=== PATIENT | female | born 1955 | race Caucasian/White ===

== ENCOUNTER 2016-11-23 07:18 | Outpatient (CLI) | payer BC ==
[2016-11-23 13:26] LABS: ALBUMIN/GLOBULIN RATIO 1.3 (1.0-2.2); BILIRUBIN,TOTAL 0.7 mg/dL (0.2-1.0); CALCIUM 9.7 mg/dL (8.5-10.3); CREATININE 0.8 mg/dL (0.4-1.0); POTASSIUM 4.2 mmol/L (3.5-5.0); TOTAL PROTEIN 7.5 g/dL (6.7-8.2)
[2016-11-23 13:36] LABS: BASOPHILS % (AUTO) 0.6 %; EOSINOPHILS # (AUTO) 0.2 10^3/uL (0.0-0.7); EOSINOPHILS % (AUTO) 3.7 %; HCT - HEMATOCRIT 45.4 % (37.0-47.0); LYMPHOCYTES # (AUTO) 1.5 10^3/uL (1.5-3.5); LYMPHOCYTES % (AUTO) 25.2 %; MEAN CORPUSCULAR HGB CONC 32.9 g/dL (32.0-36.0); MEAN CORPUSCULAR VOLUME 87.9 fL (81.0-99.0); MONOCYTES # (AUTO) 0.4 10^3/uL (0.0-1.0); MONOCYTES % (AUTO) 6.3 %; NEUTROPHILS # (AUTO) 3.7 10^3/uL (1.5-6.6); NEUTROPHILS % (AUTO) 64.2 %; RED BLOOD COUNT 5.17 10^6/uL (4.20-5.40); RED CELL DISTRIBUTION WIDTH 13.3 % (12.0-15.0); UNCORRECTED WHITE BLOOD COUNT 5.8 x10^3/uL; WHITE BLOOD COUNT 5.8 x10^3/uL (4.8-10.8)
== END 2016-11-23 07:19 | disposition home or self-care (01) ==
LOC: LAB.WCP 07:18
PROVIDERS: ATTEND Family Medicine
DX: H82.9 Vertiginous syndromes in diseases classified elsewhere, unspecified ear (principal)
CPT/HCPCS: 36415; 80053; 84443; 85025

== ENCOUNTER 2018-04-28 14:02 | Outpatient (CLI) | payer BC ==
--- NOTE | 2018-04-28 16:18 | Ultrasound Report ---
Reason: POSITIVE CARIOLIPIN ANTIBODIES, FAMILIAL PORPHYRIA Procedure Date: 04/28/2018 Accession Number: [id number] / [id number] Procedure: US - Duplex Ext Veins Left CPT Code: FULL RESULT: EXAM: LEFT LOWER EXTREMITY VENOUS ULTRASOUND EXAM DATE: 04/28/2018 03:37 PM. 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 COMPARISON: None. TECHNIQUE: Real-time sonographic vascular imaging was performed by the dock clerk through the lower extremity utilizing both color-flow and Doppler spectral analysis. Multiple patient admitting representative static images were saved for review. FINDINGS: Common Femoral Vein (CFV): Occlusive thrombus. CFV-GSV Junction: Thrombus. Profunda Femoral Vein (PFV): Nonocclusive thrombus. Femoral Vein (FV) Prox: Occlusive thrombus. Femoral Vein (FV) Mid: Occlusive thrombus. Femoral Vein (FV) Dist: Normal. Popliteal Vein: Normal. Posterior Tibial Veins: Normal. Peroneal Veins: Normal. Contralateral Side CFV: Normal. Other: Iliac veins could not be visualized. Lower IVC is patent. IMPRESSION: Extensive left deep venous thrombosis. The patient relates a history of prior left-sided DVT with lysis and additional interventions. Workup has revealed hypercoagulable condition. If the patient has not undergone anatomic evaluation for May Thurner syndrome, consider invasive imaging including venogram and possibly endovascular ultrasound. NADIA CRITICAL RESULT: The findings were discussed with Chikis Garduno on 04/28/2018 at 3:45 PM.
== END 2018-04-28 14:03 | disposition home or self-care (01) ==
LOC: DI 14:02
PROVIDERS: ATTEND Physician Assistant
DX: I82.412 Acute embolism and thrombosis of left femoral vein (principal); Z86.718 Personal history of other venous thrombosis and embolism; E80.1 Porphyria cutanea tarda; R76.0 Raised antibody titer

== ENCOUNTER 2018-04-28 18:34 | Emergency (ER) | payer BC ==
[2018-04-28 20:59] LABS: BASOPHILS % (AUTO) 0.5 %; EOSINOPHILS # (AUTO) 0.2 10^3/uL (0.0-0.7); EOSINOPHILS % (AUTO) 2.2 %; HGB - HEMOGLOBIN 13.5 g/dL (12.0-16.0); LYMPHOCYTES # (AUTO) 1.6 10^3/uL (1.5-3.5); LYMPHOCYTES % (AUTO) 21.5 %; MEAN CORPUSCULAR HEMOGLOBIN 29.2 pg (27.0-31.0); MEAN CORPUSCULAR HGB CONC 32.8 g/dL (32.0-36.0); MEAN CORPUSCULAR VOLUME 88.8 fL (81.0-99.0); MEAN PLATELET VOLUME 8.8 fL (7.9-10.8); MONOCYTES # (AUTO) 0.5 10^3/uL (0.0-1.0); MONOCYTES % (AUTO) 7.1 %; NEUTROPHILS # (AUTO) 5.2 10^3/uL (1.5-6.6); NEUTROPHILS % (AUTO) 68.7 %; PLT - PLATELET COUNT 221 10^3/uL (130-450); RED BLOOD COUNT 4.62 10^6/uL (4.20-5.40); RED CELL DISTRIBUTION WIDTH 13.5 % (12.0-15.0); WHITE BLOOD COUNT 7.6 x10^3/uL (4.8-10.8)
[2018-04-28 21:03] LABS: CALCIUM 9.1 mg/dL (8.5-10.3); CREATININE 0.7 mg/dL (0.4-1.0)
[2018-04-28 21:05] LABS: INR 1.2 (0.8-1.2); PT - PROTHROMBIN TIME 13.5 secs (9.9-12.6)
--- NOTE | 2018-04-28 22:13 | ED Physician Documentation ---
History of Present Illness - Stated complaint Stated Complaint: SENT BY DOC-BLOOD CLOT - Chief complaint Chief Complaint: General - History obtained from History obtained from: Patient - History of Present Illness Timing: Last night Pain level max: 5 Pain level now: 0 Quality: Achy Radiates to: No Improved by: Nothing Worsened by: Nothing Associated symptoms: None - Additonal information Additional information: 62-year-old female with a history of allergic asthma and DVT in 2005 that was treated with heparin then Coumadin for 2 years here Because her primary doctor told her to come to the emergency roomFor treatment of her left leg DVT.Patient stated yesterday was busy cleaning the house and then at nighttime she felt left thigh discomfort which seems to be similar to her previous DVT. She called her doctor and she was ordered to have an ultrasound of her leg. At 2 PM the doctor who read her ultrasound stated that he is also a vascular surgeon and inform her that she has a left leg DVTAnd had recommended the procedure to be done after she is anticoagulated like sometime in May.Patient stated her primary doctor ordered Coumadin and Lovenox but changed her mind and told her to go to the emergency room for admission.Patient denies any chest pain or shortness of breath. Denies any trauma or travel. Review of Systems Ten Systems: 10 systems reviewed and negative Constitutional: denies: Fever, Myalgias Cardiac: denies: Chest pain / pressure Respiratory: denies: Dyspnea Musculoskeletal: reports: Extremity pain. 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 Cardiovascular: Other HEENT: Tonsil/Adenoidectomy - Present Medications Home Medications: Ambulatory Orders Medication Instructions Recorded Confirmed [place]-3 Fatty Acids [Fish Oil] 300 mg PO DAILY 04/11/13 04/11/13 Benzonatate [Tessalon] 100 mg PO TID PRN #20 capsule 09/01/15 guaiFENesin/DEXTROMETHORPHAN 10 ml PO Q6H PRN #120 ml 09/01/15 [Robitussin Dm] Enoxaparin Sodium [Lovenox] 100 mg SQ BID #6 ml 04/28/18 Warfarin Sodium [Coumadin] 10 mg PO ONCE 1 Days #1 tablet 04/28/18 Warfarin [Coumadin] 5 mg PO DAILY #10 tablet 04/28/18 - Allergies Allergies/Adverse Reactions: Allergies Allergy/AdvReac Type Severity Reaction Status Date / Time Barbiturates Allergy Mild Anxiety Verified 04/28/18 18:44 codeine [Codeine] Allergy Mild Nausea Verified 04/28/18 18:44 Sulfa (Sulfonamide Allergy Mild Rash Verified 04/28/18 18:44 Antibiotics) - Social History Does the pt smoke?: No Smoking Status: Former smoker Does the pt drink ETOH?: Yes Does the pt have substance abuse?: No - Immunizations Immunizations are current?: No Immunizations: TDAP >10years/unknown PD ED PE NORMAL - Vitals Vital signs reviewed: Yes - General General: Alert and oriented X 3, No acute distress, Well developed/nourished - HEENT HEENT: Moist mucous membranes, Pharynx benign - Neck Neck: Supple, no meningeal sign - Cardiac Cardiac: RRR, No murmur - Respiratory Respiratory: No respiratory distress, Clear bilaterally - Abdomen Abdomen: Normal bowel sounds, Soft, Non tender, Non distended - Derm Derm: Normal color, Warm and dry - Extremities Extremities: No deformity, Normal ROM s pain, No edema, No calf tenderness / cord, Other (Mild tenderness to palpation left inner thigh. Pulses +2. Full range of motion and strength 5/5. Sensation intact. No erythema. Capillary refill less than 2 seconds.) - Neuro Neuro: Alert and oriented X 3 - Psych Psych: Normal mood, Normal affect Results - Vitals Vitals: Vital Signs - 24 hr 04/28/18 04/28/18 04/28/18 18:40 23:30 23:55 Temperature 35.8 C L 36.3 C L Heart Rate 105 H 78 72 Respiratory 16 18 16 Rate Blood Pressure 140/94 H 146/83 H 136/83 H O2 Saturation 100 95 100 Oxygen O2 Source Room air - Labs Labs: Laboratory Tests 04/28/18 04/28/18 04/28/18 19:55 19:55 19:55 WBC 7.6 RBC 4.62 Hgb 13.5 Hct 41.0 MCV 88.8 MCH 29.2 MCHC 32.8 RDW 13.5 Plt Count 221 MPV 8.8 Neut # (Auto) 5.2 Lymph # (Auto) 1.6 [place] # (Auto) 0.5 Eos # (Auto) 0.2 Baso # (Auto) 0.0 Absolute Nucleated RBC 0.00 Nucleated RBC % 0.0 PT 13.5 H INR 1.2 APTT 29.7 Sodium 141 Potassium 3.6 Chloride 104 Carbon Dioxide 26 Anion Gap 11.0 BUN 14 Creatinine 0.7 Estimated GFR (MDRD) 85 L Glucose 113 H Calcium 9.1 PD MEDICAL DECISION MAKING - ED course Complexity details: reviewed results (2341Reviewed with patient again Lovenox and Coumadin and following up with primary doctor on Tuesday to check her Coumadin level or INR.), re-evaluated patient (0Patient informed of test results and pending hospitalist telephone triage nurse. Patient denies any chest pain or shortness of breath. Left inner thigh discomfort unchanged.2315Patient informed of conversation with the hospitalist. Patient stated she would like to go home on Lovenox and Coumadin. Instructions given on initiation of Lovenox and Coumadin and the importance of follow-up.), considered differential (DVT, muscle strain, Hypercoagulable state), d/w patient, d/w PMD (5Dr. Yoder here in the emergency room and updated me on her conversation with interventional radiologist who stated there is no urgency on doing any procedure for this patient. So admission will be declined. She was informed that patient would like to go home on Lovenox and Coumadin.Dr. Yoder here in the emergency room and updated me on her conversation with interventional radiologist who stated there is no urgency on doing any procedure for this patient. So admission will be declined. She was informed that patient would like to go home on Lovenox and Coumadin.) Departure - Departure Disposition: Home, Self Care Clinical Impression: Dvt femoral (deep venous thrombosis) Qualifiers: Chronicity: acute Laterality: left Qualified Code(s): I82.412 - Acute embolism and thrombosis of left femoral vein Condition: Stable Instructions: Enoxaparin injection, Coumadin, ED DVT Prescriptions: Enoxaparin Sodium [Lovenox] 100 mg SQ BID #6 ml Warfarin [Coumadin] 5 mg PO DAILY #10 tablet Warfarin Sodium [Coumadin] 10 mg PO ONCE 1 Days #1 tablet Comments: You will be giving yourself a shot of Lovenox 100 mg subq twice a day until your INR is greater than 2. On Tuesday night you will be started on Coumadin 10 mg p.o. Then 5 mg daily. However, on Tuesday you will follow-up with your primary doctor to have your INR check.Your primary doctor then will adjust your Coumadin dose based on your INR levels.Remember to be careful and maintain safety as blood thinners can make you bruise and bleed easily. There are certain foods and antibiotics that will change the metabolism of the Coumadin so make sure that you are aware of these. If you are worse return to the emergency room Discharge Date/Time: 04/28/18 23:59
[2018-04-28] MEDS: ENOXAPARIN 100 MG/ML SYRINGE SUBQ STA (23:33)
[2018-04-28 23:58] VITALS: BP 136/83
== END 2018-04-28 23:59 | disposition home or self-care (01) ==
LOC: ED 18:34
DX: I82.412 Acute embolism and thrombosis of left femoral vein (principal); E80.1 Porphyria cutanea tarda; R76.0 Raised antibody titer; Z86.718 Personal history of other venous thrombosis and embolism; Z79.01 Long term (current) use of anticoagulants; Z87.891 Personal history of nicotine dependence
CPT/HCPCS: 36415; 80048; 85025; 85610; 85730; 96372; 99283

== ENCOUNTER 2018-05-08 15:22 | Outpatient (CLI) | payer BC | END 2018-05-08 15:23 | disposition home or self-care (01) | LOC: DI 15:22 | PROVIDERS: ATTEND Radiology Diagnostic Radiology | DX: Z02.9 Encounter for administrative examinations, unspecified (principal) ==

== ENCOUNTER 2018-05-31 22:13 | Outpatient (CLI) | payer BC | END 2018-05-31 22:14 | disposition critical access hospital (66) | LOC: EMS 22:13 | PROVIDERS: ATTEND Surgery | DX: R55 Syncope and collapse (principal); R11.2 Nausea with vomiting, unspecified; R42 Dizziness and giddiness | CPT/HCPCS: A0425; A0427 ==

== ENCOUNTER 2018-05-31 22:28 | Emergency (ER) | payer BC ==
[2018-05-31 23:56] LABS: BASOPHILS # (AUTO) 0.1 10^3/uL (0.0-0.1); BASOPHILS % (AUTO) 0.5 %; EOSINOPHILS # (AUTO) 0.2 10^3/uL (0.0-0.7); EOSINOPHILS % (AUTO) 1.6 %; LYMPHOCYTES # (AUTO) 1.1 10^3/uL (1.5-3.5); LYMPHOCYTES % (AUTO) 10.3 %; MEAN CORPUSCULAR HEMOGLOBIN 28.8 pg (27.0-31.0); MEAN CORPUSCULAR HGB CONC 32.4 g/dL (32.0-36.0); MEAN CORPUSCULAR VOLUME 88.8 fL (81.0-99.0); MEAN PLATELET VOLUME 8.4 fL (7.9-10.8); MONOCYTES # (AUTO) 0.5 10^3/uL (0.0-1.0); MONOCYTES % (AUTO) 4.7 %; NEUTROPHILS # (AUTO) 8.5 10^3/uL (1.5-6.6); NEUTROPHILS % (AUTO) 82.9 %; PLT - PLATELET COUNT 235 10^3/uL (130-450); RED CELL DISTRIBUTION WIDTH 13.9 % (12.0-15.0); WHITE BLOOD COUNT 10.3 x10^3/uL (4.8-10.8)
[2018-06-01 00:08] LABS: ALBUMIN 3.9 g/dL (3.2-5.5); ALBUMIN/GLOBULIN RATIO 1.4 (1.0-2.2); BILIRUBIN,TOTAL 0.9 mg/dL (0.2-1.0); TOTAL PROTEIN 6.7 g/dL (6.7-8.2)
[2018-06-01] MEDS: SODIUM CHLORIDE 0.9% 1,000 ML IV ONE (00:11)
--- NOTE | 2018-06-01 01:36 | ED Physician Documentation ---
PD HPI SYNCOPE - Stated complaint Stated Complaint: SYNCOPE - Chief complaint Chief Complaint: Neuro - History obtained from History obtained from: Patient, Friend - History of Present Illness Witnessed: Witnessed Timing - onset: Enter time (2129), Today Duration: Seconds Preceding symptoms: Diaphoresis, Nausea / vomiting, Light headed, Generalized weakness Associated symptoms: Nausea / vomiting Contributing factors: Other (recent surgical procedure) Injury occurred: None Similar symptoms before: Has not had sx before Recently seen: Surgery - Additional information Additional information: 62 y/o female with a history of DVT and hypercoagulable state has been taken off of her coumdin and has had an IVC filter placed today at [facility] in [place]. She left the hospital at 7pm and came home and ate some prepared food. She immediately became nauseated and went to the kitchen to get a bowl and her friend heard a thud and found her on the ground. She complained of nausea and when she sat up she had a syncopal episode and vomited. Her friend indicates it took about 2 minutes for her to come to and she vomited. She felt weak and dizzy with this. Review of Systems Constitutional: denies: Fever, Chills, Myalgias Eyes: denies: Decreased vision Ears: denies: Ear pain Nose: denies: Rhinorrhea / runny nose, Congestion Throat: denies: Sore throat Cardiac: denies: Chest pain / pressure, Palpitations Respiratory: denies: Dyspnea, Cough GI: denies: Abdominal Pain, Nausea, Vomiting : denies: Dysuria, Frequency Skin: denies: Rash Musculoskeletal: denies: Neck pain, Back pain, Extremity pain Neurologic: denies: Generalized weakness, Focal weakness, Numbness PD PAST MEDICAL HISTORY - Past Medical History Past Medical History: Yes Cardiovascular: Deep vein thrombosis, Other Respiratory: Asthma Endocrine/Autoimmune: None GI: None : None HEENT: None Psych: None Musculoskeletal: None Derm: None - Past Surgical History 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 Cardiovascular: Other HEENT: Tonsil/Adenoidectomy - Present Medications Home Medications: Ambulatory Orders Medication Instructions Recorded Confirmed Warfarin [Coumadin] 5 mg PO DAILY #10 tablet 04/28/18 05/30/18 Warfarin Sodium [Coumadin] 7.5 mg PO DAILY 05/31/18 - Allergies Allergies/Adverse Reactions: Allergies Allergy/AdvReac Type Severity Reaction Status Date / Time Barbiturates Allergy Mild Anxiety Verified 05/31/18 22:38 codeine [Codeine] Allergy Mild Nausea Verified 05/31/18 22:38 Sulfa (Sulfonamide Allergy Mild Rash Verified 05/31/18 22:38 Antibiotics) - Social History Does the pt smoke?: No Smoking Status: Never smoker Does the pt drink ETOH?: Yes Does the pt have substance abuse?: No - Immunizations Immunizations are current?: No Immunizations: TDAP >10years/unknown PD ED PE NORMAL - Vitals Vital signs reviewed: Yes (hypotensive) - General General: Alert and oriented X 3, No acute distress, Well developed/nourished - HEENT HEENT: Atraumatic, PERRL, EOMI - Neck Neck: Supple, no meningeal sign, No bony TTP - Cardiac Cardiac: RRR, No murmur - Respiratory Respiratory: No respiratory distress, Clear bilaterally - Abdomen Abdomen: Soft, Non tender, No organomegaly - Back Back: No CVA TTP, No spinal TTP - Derm Derm: Normal color, Warm and dry, No rash - Extremities Extremities: No deformity, No edema - Neuro Neuro: Alert and oriented X 3, websphere consultant 2-12 intact, No motor deficit, No sensory deficit, Normal speech Eye Opening: Spontaneous Motor: Obeys Commands Verbal: Oriented GCS Score: 15 - Psych Psych: Normal mood, Normal affect Results - Vitals Vitals: Vital Signs - 24 hr 05/31/18 05/31/18 05/31/18 22:32 22:51 23:08 Temperature 36.5 C Heart Rate 60 67 Heart Rate [ 74 Sitting] Heart Rate [ 82 Standing] Heart Rate [ 60 Supine] Respiratory 18 18 Rate Blood Pressure 89/80 L 111/65 Blood Pressure 115/68 [Sitting] Blood Pressure 106/60 [Standing] Blood Pressure 89/50 L [Supine] O2 Saturation 97 95 06/01/18 06/01/18 00:49 01:49 Temperature Heart Rate 84 88 Heart Rate [ Sitting] Heart Rate [ Standing] Heart Rate [ Supine] Respiratory 15 18 Rate Blood Pressure 114/57 L 128/64 Blood Pressure [Sitting] Blood Pressure [Standing] Blood Pressure [Supine] O2 Saturation 93 93 Oxygen O2 Source Room air - EKG (time done) 2352 Rate: Rate (enter#) (70) Rhythm: NSR Ischemia: Normal ST segments Compare to prior EKG: Old EKG unavailable Computer interpretation: Agree with computer - Labs Labs: Laboratory Tests 05/31/18 05/31/18 05/31/18 23:45 23:45 23:45 WBC 10.3 RBC 4.50 Hgb 13.0 Hct 40.0 MCV 88.8 MCH 28.8 MCHC 32.4 RDW 13.9 Plt Count 235 MPV 8.4 Neut # (Auto) 8.5 H Lymph # (Auto) 1.1 L [place] # (Auto) 0.5 Eos # (Auto) 0.2 Baso # (Auto) 0.1 Absolute Nucleated RBC 0.00 Nucleated RBC % 0.0 Sodium 137 Potassium 3.8 Chloride 102 Carbon Dioxide 26 Anion Gap 9.0 BUN 20 Creatinine 1.0 Estimated GFR (MDRD) 56 L Glucose 119 H Calcium 9.0 Total Bilirubin 0.9 AST 20 ALT 23 Alkaline Phosphatase 61 Troponin I < 0.04 Total Protein 6.7 Albumin 3.9 Globulin 2.8 Albumin/Globulin Ratio 1.4 Lipase 38 Urine Color Urine Clarity Urine pH Ur Specific [place] Urine Protein Urine Glucose (UA) Urine Ketones Urine Occult Blood Urine Nitrite Urine Bilirubin Urine Urobilinogen Ur Leukocyte Esterase Ur Microscopic Review Urine Culture Comments 06/01/18 01:25 WBC RBC Hgb Hct MCV MCH MCHC RDW Plt Count MPV Neut # (Auto) Lymph # (Auto) [place] # (Auto) Eos # (Auto) Baso # (Auto) Absolute Nucleated RBC Nucleated RBC % Sodium Potassium Chloride Carbon Dioxide Anion Gap BUN Creatinine Estimated GFR (MDRD) Glucose Calcium Total Bilirubin AST ALT Alkaline Phosphatase Troponin I Total Protein Albumin Globulin Albumin/Globulin Ratio Lipase Urine Color YELLOW Urine Clarity CLEAR Urine pH 6.5 Ur Specific [place] 1.015 Urine Protein NEGATIVE Urine Glucose (UA) NEGATIVE Urine Ketones NEGATIVE Urine Occult Blood NEGATIVE Urine Nitrite NEGATIVE Urine Bilirubin NEGATIVE Urine Urobilinogen 0.2 (NORMAL) Ur Leukocyte Esterase NEGATIVE Ur Microscopic Review NOT INDICATED Urine Culture Comments NOT INDICATED Procedures - IVC sono (time) 9338 Bedside IVC sono: IVC measures (cm) (1.46), Euvolemia, Other (The vessle is examined and appears patent to the umbilicus The proximal vein is small consistent with low volume the vein nearest the hear is normal in caliper and collapses with respiration.) PD MEDICAL DECISION MAKING - ED course Complexity details: reviewed results, re-evaluated patient, considered differential, d/w patient, d/w family ED course: 62 y/o female with placement of an IVC filter today has a syncopal episode associated with nausea and vomiting and when she arrives to the ED she is orthostatic with a rise in the rate with standing. She is improved at discharge and ambulates without difficulty. I suspect her syncope may be related to anesthetic earlier today, combined with dehydration and mesenteric steal after eating. Vasovagal. Departure - Departure Disposition: 01 Home, Self Care Clinical Impression: Vasovagal syncope, Dehydration Condition: Stable Instructions: ED Dehydration, ED Syncope Vasovagal Follow-Up: Chikis Garduno PA [Provider Admit Priv/Credential] -
[2018-06-01 01:44] LABS: BILIRUBIN,URINE NEGATIVE (NEGATIVE); GLUCOSE, URINE (UA) NEGATIVE (NEGATIVE); KETONES,URINE (UA) NEGATIVE (NEGATIVE); LEUKOCYTE ESTERASE, URINE NEGATIVE (NEGATIVE); NITRITE,URINE NEGATIVE (NEGATIVE); OCCULT BLOOD,URINE NEGATIVE (NEGATIVE); PH,URINE 6.5 PH (5.0-7.5); PROTEIN,URINE NEGATIVE (NEGATIVE); UROBILINOGEN,URINE 0.2 (NORMAL) E.U./dL (NORMAL)
[2018-06-01 01:48] LABS: CLARITY,URINE CLEAR (CLEAR)
[2018-06-01 02:51] VITALS: BP 125/62
== END 2018-06-01 03:21 | disposition home or self-care (01) ==
LOC: EDUNIT# → ED 22:28
DX: R55 Syncope and collapse (principal); E86.0 Dehydration; Z86.718 Personal history of other venous thrombosis and embolism
CPT/HCPCS: 36415; 80053; 81001; 81003; 83690; 84484; 85025; 87086; 93005; 96360; 99282; 99284

== ENCOUNTER 2018-06-28 10:39 | Outpatient (CLI) | payer BC ==
[2018-06-28] MEDS ORDERED: IOVERSOL 320 100 ML VIAL IVP ONE ×2 (10:51→13:09)
--- NOTE | 2018-06-28 11:44 | CT Report ---
Reason: CHRONIC DEEP VEIN THROMBOSIS OF FEMORAL VEIN OF LE Procedure Date: 06/28/2018 Accession Number: [id number] / [id number] Procedure: CT - Pelvis W/ CPT Code: FULL RESULT: EXAM: CT PELVIS EXAM DATE: 06/28/2018 11:07 AM. CLINICAL HISTORY: CHRONIC DEEP VEIN THROMBOSIS OF FEMORAL VEIN OF LE. COMPARISONS: ABDOMEN/PELVIS W/ 10/19/2013 1:05 PM. TECHNIQUE: Routine helical CT imaging was performed through the pelvis. IV contrast: OPTI 320 100mL. Enteric contrast: No. Reconstructions: Coronal and sagittal. In accordance with CT protocol optimization, one or more of the following dose reduction techniques were utilized for this exam: automated exposure control, adjustment of mA and/or KV based on patient size, or use of iterative reconstructive technique. FINDINGS: Visualized Abdominal Organs: Normal. Peritoneal Cavity/Bowel: Normal. No free fluid, free air or adenopathy. No masses or acute inflammatory process. The appendix is well visualized and normal. Pelvic Organs: Left external iliac/inguinal surgical clips are seen. The left external iliac and femoral vein are not well visualized and collapsed. IVC filter partially visualized. Remaining pelvic organs unremarkable. No abnormal mass or lymphadenopathy. Vasculature: See above. Bones: No significant abnormality. Other: None. IMPRESSION: 1. Left external iliac vein and femoral vein appear decompressed and not well visualized. Surgical clips are seen in the left inguinal and external iliac regions. 2. No mass or lymphadenopathy in the pelvis. No evidence of inflammatory lesion. RADIA
--- NOTE | 2018-06-28 11:46 | CT Report ---
Reason: CHRONIC DEEP VEIN THROMBOSIS OF FEMORAL VEIN OF LE Procedure Date: 06/28/2018 Accession Number: [id number] / [id number] Procedure: CT - Lower Extremity Left W/ CPT Code: FULL RESULT: EXAM: LEFT LOWER EXTREMITY CT WITH CONTRAST EXAM DATE: 06/28/2018 11:07 AM. CLINICAL HISTORY: CHRONIC DEEP VEIN THROMBOSIS OF FEMORAL VEIN OF LE. COMPARISON: DUPLEX EXT VEINS LEFT 04/28/2018 3:13 PM ultrasound 11 1618. TECHNIQUE: Thin-section axial images were acquired of the lower extremity from the lower pelvis to the proximal calf after administration of intravenous contrast. IV contrast: OPTI 320 100mL. Post-processing: Coronal and sagittal reformats. Other: None. In accordance with CT protocol optimization, one or more of the following dose reduction techniques were utilized for this exam: automated exposure control, adjustment of mA and/or KV based on patient size, or use of iterative reconstructive technique. FINDINGS: Bones: No fracture or bone lesion. Joints: The visualized joint spaces are normal. Musculature: Normal. No fatty atrophy. Vasculature: There appears to be deep vein thrombus in the left popliteal vein, inferior aspect of the left superficial femoral vein, and likely extending into the posterior tibial and peroneal veins in the upper calf. The more superior portion of the superficial femoral vein on the left is decompressed. There is hypoenhancement of the right-sided lower extremity venous system, nondiagnostic with respect to potential thrombus. Visualized arteries unremarkable. There are surgical clips in the left external iliac and inguinal regions. IMPRESSION: 1. There appears to be deep vein thrombus in the left superficial femoral and popliteal veins, extending into the upper calf. 2. Indeterminate hypoenhancement of the right lower extremity venous system. RADIA
== END 2018-06-28 10:40 | disposition home or self-care (01) ==
LOC: DI 10:39
PROVIDERS: ATTEND Family Medicine
DX: I82.412 Acute embolism and thrombosis of left femoral vein (principal); I82.432 Acute embolism and thrombosis of left popliteal vein; I87.8 Other specified disorders of veins; Z79.01 Long term (current) use of anticoagulants
CPT/HCPCS: 72193; 73701; Q9967

== ENCOUNTER 2020-09-23 10:32 | Outpatient (CLI) | payer MEDICARE, OTHER ==
[2020-09-23 18:18] LABS: BASOPHILS % (AUTO) 0.7 %; EOSINOPHILS # (AUTO) 0.1 10^3/uL (0.0-0.7); HCT - HEMATOCRIT 47.6 % (37.0-47.0); HGB - HEMOGLOBIN 15.5 g/dL (12.0-16.0); LYMPHOCYTES # (AUTO) 1.4 10^3/uL (1.5-3.5); LYMPHOCYTES % (AUTO) 22.8 %; MEAN CORPUSCULAR HEMOGLOBIN 29.7 pg (27.0-31.0); MEAN CORPUSCULAR HGB CONC 32.6 g/dL (32.0-36.0); MEAN CORPUSCULAR VOLUME 91.2 fL (81.0-99.0); MEAN PLATELET VOLUME 10.9 fL (7.9-10.8); MONOCYTES # (AUTO) 0.3 10^3/uL (0.0-1.0); MONOCYTES % (AUTO) 4.8 %; NEUTROPHILS # (AUTO) 4.2 10^3/uL (1.5-6.6); NEUTROPHILS % (AUTO) 69.4 %; PLT - PLATELET COUNT 264 10^3/uL (130-450); RED BLOOD COUNT 5.22 10^6/uL (4.20-5.40); RED CELL DISTRIBUTION WIDTH 13.2 % (12.0-15.0); WHITE BLOOD COUNT 6.1 x10^3/uL (4.8-10.8)
[2020-09-23 18:36] LABS: ALBUMIN 4.5 g/dL (3.2-5.5); ALBUMIN/GLOBULIN RATIO 1.5 (1.0-2.2); ALKALINE PHOSPHATASE 59 IU/L (42-121); ALT ALANINE AMINOTRANSFERASE 24 IU/L (10-60); AST ASPARTATE AMINOTRANSFERASE 22 IU/L (10-42); BILIRUBIN,TOTAL 0.8 mg/dL (0.2-1.0); BUN - BLOOD UREA NITROGEN 14 mg/dL (6-20); CALCIUM 9.9 mg/dL (8.5-10.3); CARBON DIOXIDE - CO2 24 mmol/L (21-32); CHLORIDE 105 mmol/L (101-111); CHOLESTEROL 298 mg/dL; CREATININE 0.7 mg/dL (0.4-1.0); GFR - MDRD 84 (>89); GLUCOSE 109 mg/dL (70-100); HDL CHOLESTEROL 60 mg/dL; LDL CHOLESTEROL,CALCULATED 200 mg/dL; LDL/HDL RATIO 3.3 (<4.4); POTASSIUM 4.1 mmol/L (3.5-5.0); SODIUM 140 mmol/L (135-145); TOTAL PROTEIN 7.5 g/dL (6.7-8.2); TRIGLYCERIDES 189 mg/dL; VLDL CHOLESTEROL 38 mg/dL
[2020-09-23 18:47] LABS: THYROID STIMULATING HORMONE 3.09 uIU/mL (0.34-5.60)
[2020-09-23 20:23] LABS: ESTIMATED AVERAGE GLUCOSE 117 mg/dL (70-100); HEMOGLOBIN A1c% 5.7 % (4.27-6.07)
== END 2020-09-23 10:33 | disposition home or self-care (01) ==
LOC: LAB.N 10:32
PROVIDERS: ATTEND Family Medicine
DX: J45.909 Unspecified asthma, uncomplicated (principal); K57.30 Diverticulosis of large intestine without perforation or abscess without bleeding; R03.0 Elevated blood-pressure reading, without diagnosis of hypertension; E66.9 Obesity, unspecified; R73.9 Hyperglycemia, unspecified; E80.1 Porphyria cutanea tarda
CPT/HCPCS: 36415; 80053; 80061; 83036; 83721; 84443; 85025

== ENCOUNTER 2021-08-20 13:57 | Outpatient (CLI) | payer MEDICARE, OTHER ==
--- NOTE | 2021-08-20 17:25 | XRAY Report ---
PROCEDURE: Wrist 3 View RT INDICATIONS: PAIN IN RIGHT WRIST TECHNIQUE: 3 views of the wrist were acquired. COMPARISON: None. FINDINGS: Bones: There is a transverse fracture in the distal radius extending to the distal radioulnar joint. There is mild displacement dorsally. No suspicious bony lesions. Soft tissues: No suspicious soft tissue calcifications. IMPRESSION: 1. Mildly displaced transverse fracture in the distal radius extending to the distal radioulnar joint . Reviewed by: Angel Ospina MD on 08/20/2021 5:23 PM [facility] Approved by: Angel Ospina MD on 08/20/2021 5:23 PM [facility] Station ID: [id number]
== END 2021-08-20 23:59 | disposition home or self-care (01) ==
LOC: DI.N 13:57
PROVIDERS: ATTEND Physician Assistant
DX: S52.591A Other fractures of lower end of right radius, initial encounter for closed fracture (principal)

== ENCOUNTER 2021-08-27 08:00 | Outpatient (CLI) | payer MEDICARE ==
--- NOTE | 2021-08-27 16:03 | XRAY Report ---
PROCEDURE: Wrist 3 View RT INDICATIONS: WRIST FRACTURE TECHNIQUE: 3 views of the wrist were acquired. COMPARISON: X-ray wrist 08/20/2021. FINDINGS: Bones: Distal radial transverse fracture is present. Lucency extends to the radial ulnar joint. There remains very minimal dorsal displacement.. No suspicious bony lesions. Scaphoid view: Not obtained. Soft tissues: No suspicious soft tissue calcifications. IMPRESSION: Stable alignment of minimally displaced distal radial fracture as above. Reviewed by: Leigh Ann Shah MD on 08/27/2021 4:02 PM PDT Approved by: Leigh Ann Sahh MD on 08/27/2021 4:02 PM PDT Station ID: [id number]
== END 2021-08-27 23:59 | disposition home or self-care (01) ==
LOC: DI.WOS 08:00
PROVIDERS: ATTEND Orthopaedic Surgery
DX: S52.501D Unspecified fracture of the lower end of right radius, subsequent encounter for closed fracture with routine healing (principal)

== ENCOUNTER 2021-10-09 06:00 | Outpatient (CLI) | payer MEDICARE ==
--- NOTE | 2021-10-12 08:46 | XRAY Report ---
PROCEDURE: Wrist 3 View RT INDICATIONS: WRIST FRACTURE TECHNIQUE: 3 views of the wrist were acquired. COMPARISON: None FINDINGS: Bones: Healing fracture of the distal radius. No acute fractures or dislocations. No suspicious bon y lesions. There is periarticular osteopenia. No erosions. Soft tissues: No suspicious soft tissue calcifications. IMPRESSION: 1. Healing nondisplaced fracture of the distal radius. 2. Periarticular osteopenia is likely due to disuse. Reviewed by: Marcos Lawler on 10/12/2021 8:45 AM PDT Approved by: Marcos Lawler on 10/12/2021 8:45 AM PDT Station ID: [id number]
== END 2021-10-09 23:59 | disposition home or self-care (01) ==
LOC: DI.WOS 06:00
PROVIDERS: ATTEND Physician Assistant
DX: S52.501D Unspecified fracture of the lower end of right radius, subsequent encounter for closed fracture with routine healing (principal); M85.88 Other specified disorders of bone density and structure, other site

== ENCOUNTER 2021-11-10 09:35 | Outpatient (CLI) | payer MEDICARE ==
--- NOTE | 2021-11-10 10:23 | DEXA Report ---
PROCEDURE: Dexa Spine and/or Hip INDICATIONS: MENOPAUSAL TECHNIQUE: Dual energy x-ray absorptiometry (DXA) was performed on a [employer] System. Regions measur ed are the AP Spine, femoral neck, and if needed forearm. COMPARISON: None. FINDINGS: Lumbar Spine: Bone Mineral Density 0.954 g/cm/cm,T score -1.9, osteopenia Left Hip: Bone Mineral Density 0.790 g/cm/cm,T score -1.7, osteopenia Left Femoral Neck: Bone Mineral Density 0.728 g/cm/cm, T score -2.2, osteopenia (T score greater or equal to -1.0: NORMAL) (T score from -1.1 to -2.4: OSTEOPENIA) (T score less than or equal to -2.5 to: OSTEOPOROSIS) Impression: Osteopenia. Patient is at increased risk for fracture. Patients with diagnosis of osteoporosis or osteopenia should have regular bone mineral density assess ment. For those eligible for Medicare, routine testing is allowed once every 2 years. Testing frequ ency can be increased for patients who have rapidly progressing disease or for those who are receivin g medical therapy to restore bone mass. Reviewed by: Jeevan Peres MD on 11/10/2021 10:21 AM PDT Approved by: Jeevan Peres MD on 11/10/2021 10:21 AM PDT Station ID: [id number]
== END 2021-11-10 09:36 | disposition home or self-care (01) ==
LOC: DI 09:35
PROVIDERS: ATTEND Physician Assistant
DX: M85.89 Other specified disorders of bone density and structure, multiple sites (principal)

== ENCOUNTER 2022-02-19 07:17 | Outpatient (CLI) | payer MEDICARE ==
[2022-02-19 07:30] LABS: BASOPHILS % (AUTO) 0.5 %; EOSINOPHILS # (AUTO) 0.2 10^3/uL (0.0-0.7); EOSINOPHILS % (AUTO) 3.2 %; HCT - HEMATOCRIT 46.9 % (37.0-47.0); HGB - HEMOGLOBIN 15.4 g/dL (12.0-16.0); LYMPHOCYTES # (AUTO) 1.6 10^3/uL (1.5-3.5); LYMPHOCYTES % (AUTO) 27.7 %; MEAN CORPUSCULAR HEMOGLOBIN 29.8 pg (27.0-31.0); MEAN CORPUSCULAR HGB CONC 32.8 g/dL (32.0-36.0); MEAN CORPUSCULAR VOLUME 90.9 fL (81.0-99.0); MEAN PLATELET VOLUME 10.3 fL (7.9-10.8); MONOCYTES # (AUTO) 0.4 10^3/uL (0.0-1.0); MONOCYTES % (AUTO) 6.5 %; NEUTROPHILS # (AUTO) 3.5 10^3/uL (1.5-6.6); NEUTROPHILS % (AUTO) 61.9 %; PLT - PLATELET COUNT 228 10^3/uL (130-450); RED BLOOD COUNT 5.16 10^6/uL (4.20-5.40); WHITE BLOOD COUNT 5.7 x10^3/uL (4.8-10.8)
[2022-02-19 07:48] LABS: ALBUMIN 4.2 g/dL (3.2-5.5); ALBUMIN/GLOBULIN RATIO 1.4 (1.0-2.2); ALKALINE PHOSPHATASE 55 IU/L (42-121); ALT ALANINE AMINOTRANSFERASE 22 IU/L (10-60); AST ASPARTATE AMINOTRANSFERASE 19 IU/L (10-42); BILIRUBIN,TOTAL 0.9 mg/dL (0.2-1.0); BUN - BLOOD UREA NITROGEN 14 mg/dL (6-20); CALCIUM 9.4 mg/dL (8.5-10.3); CARBON DIOXIDE - CO2 28 mmol/L (21-32); CHLORIDE 106 mmol/L (101-111); CHOL/HDL RATIO 5.1 (<4.4); CHOLESTEROL 314 mg/dL; CREATININE 0.8 mg/dL (0.4-1.0); GFR - MDRD 72 (>89); GLUCOSE 121 mg/dL (70-100); HDL CHOLESTEROL 61 mg/dL; LDL CHOLESTEROL,CALCULATED 229 mg/dL; LDL/HDL RATIO 3.8 (<4.4); POTASSIUM 4.2 mmol/L (3.5-5.0); SODIUM 143 mmol/L (135-145); TOTAL PROTEIN 7.2 g/dL (6.7-8.2); TRIGLYCERIDES 120 mg/dL; VLDL CHOLESTEROL 24 mg/dL
[2022-02-19 12:46] LABS: ESTIMATED AVERAGE GLUCOSE 120 mg/dL (70-100); HEMOGLOBIN A1c% 5.8 % (4.27-6.07)
== END 2022-02-19 07:18 | disposition home or self-care (01) ==
LOC: LAB 07:17
PROVIDERS: ATTEND Family Medicine
DX: R73.03 Prediabetes (principal); I82.509 Chronic embolism and thrombosis of unspecified deep veins of unspecified lower extremity; J45.909 Unspecified asthma, uncomplicated; K57.30 Diverticulosis of large intestine without perforation or abscess without bleeding; E66.9 Obesity, unspecified; E80.1 Porphyria cutanea tarda
CPT/HCPCS: 36415; 80053; 80061; 83036; 83721; 85025

== ENCOUNTER 2023-01-28 08:06 | Outpatient (CLI) | payer MEDICARE ==
[2023-01-28 08:18] LABS: BASOPHILS % (AUTO) 0.6 %; EOSINOPHILS # (AUTO) 0.2 10^3/uL (0.0-0.7); EOSINOPHILS % (AUTO) 4.3 %; HCT - HEMATOCRIT 46.4 % (37.0-47.0); HGB - HEMOGLOBIN 14.7 g/dL (12.0-16.0); LYMPHOCYTES # (AUTO) 1.2 10^3/uL (1.5-3.5); MEAN CORPUSCULAR HEMOGLOBIN 29.1 pg (27.0-31.0); MEAN CORPUSCULAR HGB CONC 31.7 g/dL (32.0-36.0); MEAN CORPUSCULAR VOLUME 91.7 fL (81.0-99.0); MONOCYTES # (AUTO) 0.3 10^3/uL (0.0-1.0); MONOCYTES % (AUTO) 6.2 %; NEUTROPHILS # (AUTO) 2.9 10^3/uL (1.5-6.6); NEUTROPHILS % (AUTO) 62.7 %; PLT - PLATELET COUNT 244 10^3/uL (130-450); RED BLOOD COUNT 5.06 10^6/uL (4.20-5.40); RED CELL DISTRIBUTION WIDTH 13.1 % (12.0-15.0); WHITE BLOOD COUNT 4.7 x10^3/uL (4.8-10.8)
[2023-01-28 08:31] LABS: ALBUMIN 4.2 g/dL (3.2-5.5); ALBUMIN/GLOBULIN RATIO 1.5 (1.0-2.2); ALKALINE PHOSPHATASE 61 IU/L (42-121); ALT ALANINE AMINOTRANSFERASE 20 IU/L (10-60); AST ASPARTATE AMINOTRANSFERASE 17 IU/L (10-42); BILIRUBIN,TOTAL 0.5 mg/dL (0.2-1.0); BUN - BLOOD UREA NITROGEN 14 mg/dL (6-20); CALCIUM 9.5 mg/dL (8.5-10.3); CARBON DIOXIDE - CO2 31 mmol/L (21-32); CHLORIDE 104 mmol/L (101-111); CHOL/HDL RATIO 4.3 (<4.4); CHOLESTEROL 250 mg/dL; CREATININE 0.8 mg/dL (0.6-1.3); GFR - MDRD 71 (>89); GLUCOSE 114 mg/dL (74-104); HDL CHOLESTEROL 58 mg/dL; LDL CHOLESTEROL,CALCULATED 161 mg/dL; LDL/HDL RATIO 2.8 (<4.4); POTASSIUM 4.4 mmol/L (3.5-4.5); SODIUM 139 mmol/L (135-145); TRIGLYCERIDES 157 mg/dL (48-352); VLDL CHOLESTEROL 31 mg/dL
[2023-01-28 08:47] LABS: THYROID STIMULATING HORMONE 3.42 uIU/mL (0.34-5.60)
[2023-01-28 10:16] LABS: ESTIMATED AVERAGE GLUCOSE 117 mg/dL (70-100); HEMOGLOBIN A1c% 5.7 % (4.27-6.07)
== END 2023-01-28 08:07 | disposition home or self-care (01) ==
LOC: LAB 08:06
PROVIDERS: ATTEND Family Medicine
DX: K57.30 Diverticulosis of large intestine without perforation or abscess without bleeding (principal); R73.03 Prediabetes; J45.909 Unspecified asthma, uncomplicated; E66.9 Obesity, unspecified
CPT/HCPCS: 36415; 80053; 80061; 83036; 83721; 84443; 85025

== ENCOUNTER 2023-02-08 06:21 | Day surgery (SDC) | payer MEDICARE ==
[2023-02-08] MEDS ORDERED: LACTATED RINGERS 1,000 ML IV ONE ×2 (06:57→09:32)
--- NOTE | 2023-02-08 07:17 | ANESTHESIA ---
Pre-Anesthesia VS, & Labs - Diagnosis screening, history of polyps - Procedure colonoscopy Vital Signs: Temp Pulse Resp BP Pulse Ox O2 Flow Rate 36.3 C L 80 14 145/83 H 95 02/08/23 06:30 02/08/23 06:30 02/08/23 06:30 02/08/23 06:30 02/08/23 06:30 Height: 5 ft 3 in Weight (kg): 94.4 kg Body Mass Index: 36.8 BMI Classification: Obese - NPO Other (prep as directed) - Is Patient ?: No Home Medications and Allergies Home Medications: Ambulatory Orders Montelukast [Singulair] 10 mg PO QPM PRN 02/01/23 Montelukast [Singulair] 10 mg PO QPM PRN 02/01/23 Allergies/Adverse Reactions: Allergies Allergy/AdvReac Type Severity Reaction Status Date / Time Barbiturates Allergy Mild Anxiety Verified 08/07/19 08:53 codeine [Codeine] Allergy Mild Nausea Verified 08/07/19 08:53 Sulfa (Sulfonamide Allergy Mild Rash Verified 08/07/19 08:53 Antibiotics) acetaminophen [From Vicodin] Allergy stomach Verified 02/01/23 15:00 and diarrhea cat dander Allergy Unknown Verified 08/07/19 08:53 ciprofloxacin [From Cipro] Allergy Hives Verified 02/01/23 15:00 crab Allergy Unknown Verified 08/07/19 08:53 hydrocodone [From Vicodin] Allergy Unknown Verified 08/07/19 08:53 pollen extracts Allergy Unknown Verified 08/07/19 08:53 walnut Allergy Unknown Verified 08/07/19 08:53 lactase [From Dairy Aid] AdvReac Unknown Verified 08/07/19 08:53 Anes History & Medical History - Anesthetic History Anesthesia Complications: reports: No previous complications - Medical History Cardiovascular: reports: Deep vein thrombosis, Other Pulmonary: reports: Asthma Gastrointestinal: reports: None Urinary: reports: None Musculoskeletal: reports: None Endocrine/Autoimmune: reports: None Skin: reports: None Smoking Status: Never smoker - Surgical History General: reports: Colonoscopy Eyes Ears Nose Throat (EENT): reports: Tonsil/Adenoidectomy Cardiothoracic: reports: Other Gynecologic: reports: Hysterectomy Exam General: Alert Dental: WNL Mouth Opening: Greater than 4 Fingerbreadths Neck Mobility: Limited Mallampati classification: III Thyromental Distance: greater than 6 cm Respiratory: Lungs clear Cardiovascular: Regular rate Plan Anesthesia Type: Total IV Consent for Procedure(s) Verified and Reviewed: Yes Code Status: Attempt Resuscitation ASA classification: 2-Mild systemic disease Is this case an emergency?: No
[2023-02-08] MEDS ORDERED: PROPOFOL 500 MG/50 ML 500 MG/50 ML VIAL ONE (07:36)
[2023-02-08] MEDS ORDERED: SIMETHICONE 40 MG/0.6 ML 30 ML BOTTLE PO ONE (07:49)
[2023-02-08] MEDS ORDERED: PROPOFOL 200 MG/20 ML VIAL IVP ONE (08:11)
[2023-02-08] MEDS ORDERED: ONDANSETRON 4 MG/2 ML VIAL ONE (08:21)
[2023-02-08 08:34] VITALS: O2SAT 98
[2023-02-08 08:45] VITALS: BP 130/77
--- NOTE | 2023-02-08 09:17 | ANESTHESIA POST OP EVALUATION ---
Anesthesia Post Eval - Post Anesthesia Eval Vitals: Last Vital Signs Temp 36.1 C L 02/08/23 08:42 Pulse 64 02/08/23 08:42 Resp 17 02/08/23 08:42 BP 130/77 02/08/23 08:42 Pulse Ox 98 02/08/23 08:42 O2 Flow Rate CV Function Including HR & BP: Stable Pain Control: Satisfactory Nausea & Vomiting: Negative Mental Status: Baseline Respiratory Status: Airway Patent Hydration Status: Satisfactory Anesthesia Complications: None
== END 2023-02-08 06:22 | disposition home or self-care (01) ==
LOC: SDS 06:21
PROVIDERS: ATTEND Surgery
PROC: 0DBH8ZX Excision of Cecum, Via Natural or Artificial Opening Endoscopic, Diagnostic (ICD-10-PCS; 2023-02-08)
PROC: 0DBK8ZX Excision of Ascending Colon, Via Natural or Artificial Opening Endoscopic, Diagnostic (ICD-10-PCS; principal; 2023-02-08 07:30)
DX: D12.2 Benign neoplasm of ascending colon (principal); D12.0 Benign neoplasm of cecum; K57.30 Diverticulosis of large intestine without perforation or abscess without bleeding; E66.9 Obesity, unspecified; J45.909 Unspecified asthma, uncomplicated; Z68.36 Body mass index [BMI] 36.0-36.9, adult
CPT/HCPCS: 45380; 45385; A9270; J7120

== ENCOUNTER 2023-05-04 12:12 | Outpatient (CLI) | payer MEDICARE ==
--- NOTE | 2023-05-04 18:48 | Ultrasound Report ---
PROCEDURE: Head or Neck Soft Tissue INDICATIONS: FOREHEAD MASS TECHNIQUE: Soft tissue ultrasound at the area of concern in the right forehead was obtained COMPARISON: None FINDINGS: At the area of concern, there is a subcutaneous hypoechoic nonvascular mass measuring 1.0 x 0.4 x 1.0 IMPRESSION: Subcutaneous hypoechoic nodule may reflect small lipoma or sebaceous cyst. Reviewed by: Madi Cassidy MD on 05/04/2023 5:47 PM AKST Approved by: Madi Cassidy MD on 05/04/2023 5:47 PM AKST Station ID: [id number]
== END 2023-05-04 12:13 | disposition home or self-care (01) ==
LOC: DI 12:12
PROVIDERS: ATTEND Internal Medicine
DX: R22.0 Localized swelling, mass and lump, head (principal)